=== PATIENT | male | born 1950 | race Caucasian/White ===

== ENCOUNTER 2018-12-09 16:11 | Emergency (ER) | payer MEDICARE, OTHER ==
[2018-12-09] MEDS ORDERED: hydrOXYzine HCl 100 MG/2 ML SDV IM ONE (16:27)
[2018-12-09] MEDS ORDERED: Famotidine 20 MG Tab PO ONE (16:50)
--- NOTE | 2018-12-09 16:59 | EDM.PDOC ---
ED HPI GENERAL MEDICAL PROBLEM - General Chief Complaint: Allergic Reaction Stated Complaint: BEE STING Time Seen by Provider: 12/09/18 16:40 Source of Information: Reports: Patient, Old Records, RN History Limitations: Reports: No Limitations - History of Present Illness INITIAL COMMENTS - FREE TEXT/NARRATIVE: 68 yo male with no pHx of allergy was stung in the [place] gnostic[place] today and immediately developed hives diffusely. No difficulty with breathing or swallowing and no voice changes. No tx prior to arrival. Onset: Today Onset Date: 12/09/18 Onset Time: 14:10 Duration: Minutes: Location: Reports: Generalized Quality: Reports: Other (itching) Severity: Moderate Improves with: Reports: None Worsens with: Reports: None Context: Reports: Other (see HPI) Associated Symptoms: Reports: Rash Treatments [employer]: Reports: Other (see below) (none) - Related Data Allergies Allergy/AdvReac Type Severity Reaction Status Date / Time No Known Allergies Allergy Verified 12/09/18 16:27 Home Meds: Home Meds EPINEPHrine [Adrenaclick] 0.3 mg IJ ASDIRECTED #1 ml 12/09/18 [Rx] Past Medical History - Infectious Disease History Infectious Disease History: Reports: Chicken Pox, Measles, Mumps - Past Surgical History Musculoskeletal Surgical History: Reports: Other (See Below) Other Musculoskeletal Surgeries/Procedures:: surgery to right arm Social & Family History - Tobacco Use Smoking Status *Q: Never Smoker - Caffeine Use Caffeine Use: Reports: Coffee - Recreational Drug Use Recreational Drug Use: No ED ROS ALLERGIC REACTION - Review of Systems Review Of Systems: See Below Constitutional: Reports: No Symptoms HEENT: Reports: No Symptoms Respiratory: Reports: No Symptoms GI/Abdominal: Reports: No Symptoms : Reports: No Symptoms Skin: Reports: Pruritis, Rash, Erythema Neurological: Reports: No Symptoms ED EXAM GENERAL NO PERIP PULSE - Physical Exam Exam: See Below Exam Limited By: No Limitations General Appearance: Alert, WD/WN, No Apparent Distress Eye Exam: Bilateral Eye: Normal Inspection Ears: Normal External Exam, Normal Canal, Hearing Grossly Normal Nose: Normal Inspection, No Blood Throat/Mouth: Normal Inspection, Normal Lips, Normal Oropharynx, Normal Voice, No Airway Compromise Head: Atraumatic, Normocephalic Neck: Normal Inspection Respiratory/Chest: No Respiratory Distress, Lungs Clear, Normal Breath Sounds, No Accessory Muscle Use Cardiovascular: Regular Rate, Rhythm, No Edema GI/Abdominal: Normal Bowel Sounds, Soft, Non-Tender, No Distention Back Exam: Normal Inspection. No: CVA Tenderness (R), CVA Tenderness (L) Extremities: Normal Inspection, Normal Range of Motion, Non-Tender, No Pedal Edema Neurological: Alert, Oriented, CN II-XII Intact, Normal Cognition, No Motor/ Sensory Deficits Psychiatric: Normal Affect, Normal Mood Skin Exam: Warm, Dry, Intact, Normal Color, No Rash Course - Vital Signs Text/Narrative:: Better after Vistaril 75 mg IM Last Recorded V/S: Last Vital Signs Temp 36.5 C 12/09/18 16:28 Pulse 99 12/09/18 16:28 Resp 16 12/09/18 16:28 BP 157/88 H 12/09/18 16:28 Pulse Ox 94 L 12/09/18 16:28 - Orders/Labs/Meds Meds: Medications Discontinued Medications Generic Name Dose Route Start Last Admin Trade Name Fritzq PRN Reason Stop Dose Admin Famotidine 40 mg 12/09/18 16:50 Pepcid PO 12/09/18 16:51 ONETIME ONE Hydroxyzine HCl 75 mg 12/09/18 16:27 12/09/18 16:32 Vistaril IM 12/09/18 16:28 75 mg ONETIME ONE Administration Departure - Departure Time of Disposition: 17:05 Disposition: Home, Self-Care 01 Condition: Fair Clinical Impression: Allergic reaction to bee sting - Discharge Information *PRESCRIPTION DRUG MONITORING PROGRAM REVIEWED*: No *COPY OF PRESCRIPTION DRUG MONITORING REPORT IN PATIENT ZANDRA: No Prescriptions: EPINEPHrine [Adrenaclick] 0.3 mg IJ ASDIRECTED #1 ml Instructions: Hives, [id number] Referrals: PCP,None [Primary Care Provider] - Additional Instructions: Take diphenhydramine up to 75 mg every 4-6 hrs as needed for continued and future hives. If you have a reaction to a future bee sting consider using your EPI Pen and take the diphenhydramine and head to an ER-if no allergic reaction occurs you may not necessarily need to be seen at the ER.
== END 2018-12-09 17:31 | disposition home or self-care (01) ==
LOC: JP.ED 16:11
DX: T63.441A Toxic effect of venom of bees, accidental (unintentional), initial encounter (principal)
CPT/HCPCS: 96372; 99282; 99283; A9270; J3410